=== PATIENT | female | born 1960 | race Caucasian/White ===

== ENCOUNTER 2018-01-22 15:36 | Emergency (ER) | payer BC ==
[2018-01-22] MEDS ORDERED: DIPHENHYDRAMINE HCL 50 MG/ML VIAL IM ONE (16:09)
[2018-01-22] MEDS ORDERED: MORPHINE SULFATE 10 MG/ML INJ IM ONE (16:09)
--- NOTE | 2018-01-22 16:15 | ER Document Report ---
ED Medical Screen (RME) - General Chief Complaint: Ankle Injury Stated Complaint: ANKLE/FOOT INJURY Time Seen by Provider: 01/22/18 16:07 Notes: 57-year-old female patient on no regular medications. Twisted her left ankle about 30 minutes prior to arrival. Past history of fracture in that same ankle. There is an abrasion to the anterior medial ankle, her tetanus is up-to-date. There appears to be possible deformity to the ankle, is difficult to tell due to how she is holding her foot. She does appear to be in a lot of pain. I have greeted and performed a rapid initial assessment of this patient. A comprehensive ED assessment and evaluation of the patient, analysis of test results and completion of the medical decision making process will be conducted by additional ED providers. - Related Data Allergies/Adverse Reactions: codeine Allergy (Verified 01/22/18 15:40) Past Medical History - Social History Chew tobacco use (# tins/day): No Frequency of alcohol use: Occasional Drug Abuse: None Renal/ Medical History: Denies: Hx Peritoneal Dialysis Physical Exam - Vital signs Vitals: Temp Pulse Resp BP Pulse Ox 98.4 F 90 14 134/77 H 98 01/22/18 15:45 01/22/18 15:45 01/22/18 15:45 01/22/18 15:45 01/22/18 15:45 Course - Vital Signs Vital signs: Temp Pulse Resp BP Pulse Ox 98.4 F 90 14 134/77 H 98 01/22/18 15:45 01/22/18 15:45 01/22/18 15:45 01/22/18 15:45 01/22/18 15:45
--- NOTE | 2018-01-22 16:50 | RADIOLOGY REPORT (SQ) ---
EXAM DESCRIPTION: ANKLE LEFT COMPLETE COMPLETED DATE/TIME: 01/22/2018 4:26 pm REASON FOR STUDY: Fall, deformity COMPARISON: None. NUMBER OF VIEWS: Three views. TECHNIQUE: AP, lateral, and oblique radiographic images acquired of the left ankle. LIMITATIONS: None. FINDINGS: MINERALIZATION: Normal. BONES: A trimalleolar fracture of the ankle is identified with posterior displacement of the talus in relation to the ankle mortise. JOINTS: No effusions. SOFT TISSUES: There is associated soft tissue swelling OTHER: Plantar spurring is identified. IMPRESSION: Trimalleolar fracture of the left ankle. TECHNICAL DOCUMENTATION: JOB ID: [id number] [employer]- All Rights Reserved Reading location - IP/workstation name: [email or web address]
[2018-01-22] MEDS ORDERED: ONDANSETRON HCL INJ/PF 4 MG/2 ML SDV IV ONE (16:59)
[2018-01-22] MEDS ORDERED: PROPOFOL INJ 200 MG/20 ML VIAL IV ONE (17:00)
--- NOTE | 2018-01-22 18:13 | RADIOLOGY REPORT (SQ) ---
EXAM DESCRIPTION: ANKLE LEFT AP/LATERAL COMPLETED DATE/TIME: 01/22/2018 6:03 pm REASON FOR STUDY: Post reduction COMPARISON: 01/22/2018 TECHNIQUE: AP and lateral views of the left ankle. LIMITATIONS: None. FINDINGS: There has been interval reduction of the previously described trimalleolar fracture of the left ankle. An overlying cast is identified. IMPRESSION: Interval reduction as noted above TECHNICAL DOCUMENTATION: JOB ID: [id number] [employer]- All Rights Reserved Reading location - IP/workstation name: [email or web address]
[2018-01-22] MEDS ORDERED: FENTANYL CITRATE INJ/PF 100 MCG/2 ML AMPUL IV ONE (18:32)
[2018-01-22] MEDS ORDERED: METOCLOPRAMIDE HCL INJ/PF 10 MG/2 ML SDV IV ONE (19:35)
[2018-01-22] MEDS ORDERED: DIPHENHYDRAMINE HCL 50 MG/ML VIAL IV ONE (19:36)
[2018-01-22] MEDS ORDERED: FAMOTIDINE INJ/PF 20 MG/2 ML SDV IV ONE (20:14)
[2018-01-22 20:47] VITALS: BP 122/73
--- NOTE | 2018-01-22 22:01 | ER Document Report ---
ED General - General Chief Complaint: Ankle Injury Stated Complaint: ANKLE/FOOT INJURY Time Seen by Provider: 01/22/18 16:07 Mode of Arrival: Stretcher Information source: Patient Notes: This is a 57-year-old female with no significant medical problems who presents to the emergency room with left ankle deformity after twisting her left ankle while ambulating. Medications: None Primary CARE physician: None Allergies: Codeine - HPI Onset: Just prior to arrival Onset/Duration: Sudden Quality of pain: Dull Severity: Severe Pain Level: 5 Associated symptoms: denies: Chest pain, Fever, Shortness of breath Exacerbated by: Movement Relieved by: Denies Similar symptoms previously: No Recently seen / treated by doctor: No - Related Data Allergies/Adverse Reactions: codeine Allergy (Verified 01/22/18 15:40) Past Medical History - General Information source: Patient - Social History Smoking Status: Never Smoker Cigarette use (# per day): No Chew tobacco use (# tins/day): No Frequency of alcohol use: Occasional Drug Abuse: None Lives with: Family Family History: None Patient has suicidal ideation: No Patient has homicidal ideation: No - Medical History Medical History: Negative Renal/ Medical History: Denies: Hx Peritoneal Dialysis Surgical Hx: Negative Review of Systems - Review of Systems Constitutional: denies: Chills, Fever EENT: No symptoms reported Cardiovascular: No symptoms reported Respiratory: No symptoms reported Gastrointestinal: No symptoms reported Genitourinary: No symptoms reported Female Genitourinary: No symptoms reported Musculoskeletal: See HPI Skin: No symptoms reported Hematologic/Lymphatic: No symptoms reported Neurological/Psychological: No symptoms reported Physical Exam - Vital signs Vitals: Temp Pulse Resp BP Pulse Ox 98.4 F 90 14 134/77 H 98 01/22/18 15:45 01/22/18 15:45 01/22/18 15:45 01/22/18 15:45 01/22/18 15:45 Notes: Physical exam: GENERAL: She is alert and oriented x3, she is complaining of left lower extremity pain she does have an obvious deformity. HEAD: Atraumatic, normocephalic. EYES: Pupils equal round and reactive to light, extraocular movements intact, sclera anicteric, conjunctiva are normal. ENT: TMs normal, nares patent, oropharynx clear without exudates. Moist mucous membranes. NECK: Normal range of motion, supple without obvious mass LUNGS: Breath sounds clear to auscultation bilaterally and equal. No wheezes rales or rhonchi. HEART: Regular rate and rhythm without murmurs, rubs or gallops. ABDOMEN: Soft, normoactive bowel sounds. No tenderness to palpation. No guarding, no rebound. No masses appreciated. EXTREMITIES: Left lower extremity: Patient has a good dopplerable DP and posterior tibial pulse. She has good cap refill. She does have a deformity of the distal tib-fib. She does have a superficial abrasion over the right malleolus. I have cleaned off this area and examined it closely and there is no evidence of puncture or extension into the deeper tissues. It appears quite superficial. She does have sensation to the distal foot. NEUROLOGICAL: Cranial nerves II through XII grossly intact. Normal speech, moving all extremities. PSYCH: Normal mood, normal affect. SKIN: As mentioned, there is a mild abrasion over the medial malleolus. This is away from where the deformity is. I gently cleaned this wound and probed with a Q-tip and there was no puncture barajas going deep into the tissues. This appears to be a very superficial abrasion. This is not an area where there is tension against the skin as well. If anything, the tension appears to be on the lateral aspect of the distal extremity. Course - Re-evaluation Re-evalutation: 01/22/18 21:57 Patient tolerated the procedure well. Repeat films show significant interval improvement of the week located joint. I did discuss the case with Dr. Herron who is covering for orthopedics and he is willing to see the patient in the office at 8 AM or admit the patient to the hospital overnight for surgery if needed. I have discussed the options above with the patient as well as the patient's mother at the bedside. They have an orthopedist with [facility] and they are requesting to go there. I did call [facility] ([phone]) and spoke to the answering service and attempted to get a call back to arrange for an appointment tomorrow so that surgery can be scheduled promptly. After multiple attempts through the answering service, I still received no word from them. I did discuss this with the patient and her mother. They are insistent that they would rather go to [facility] and they do not want to stay in the hospital and have surgery here. The patient was given some IV pain medicine and she was nauseated and received IV antiemetics. We observed her until she felt better and then we did a walk test with crutches in the emergency room which she passed. I will give her the number of [facility] and I have stressed to them that she really needs to see tomorrow in the morning. I have advised them if they are unable to get into [facility], she could still go to Dr. Herron's office as a walk-in and they will see her and schedule surgery. - Vital Signs Vital signs: Temp Pulse Resp BP Pulse Ox 98.4 F 70 16 122/73 100 01/22/18 15:45 01/22/18 18:20 01/22/18 20:31 01/22/18 20:31 01/22/18 20:31 - Diagnostic Test Radiology reviewed: Image reviewed, Reports reviewed - Fracture dislocation of the left ankle Procedures - Conscious Sedation Conscious sedation Time started: 17:45 Time completed: 18:20 Consent obtained: Yes Indication: Fracture dislocation of the left ankle Last meal: 2 PM Prior complications: Procedural sedation Normal healthy pt.: P1. - ASA Classification Airway Evaluation: Normal anatomy Mallampati Classification: Class 2 Used during procedure: Suction available, IV access obtained, Pulse ox on pt., hall monitor on pt. Medications administered: Diprivan Reversal agents: None I personally performed/intraservice time: Sedation, Procedure, 31-45 min Complications: No - Immobilization Left Leg Time completed: 18:20 Pre-Proc Neuro Vasc Exam: Normal Immobilizer type: Sugar tong, Short Leg Posterior Performed by: Provider - With assistance from PCT Post-Proc Neuro Vasc Exam: Normal Alignment checked and good: Yes Notes: 01/22/18 23:05 X-rays show improved alignment. Cap refill checked multiple times after splint placement: Good - Joint Reduction/Fracture Care Left Leg Time completed: 18:20 Consent obtained: Yes Conscious sedation: Yes Pre-procedure NV exam: Yes - DP and posterior tibial pulses were marked Fracture: Closed Manipulation comment: Traction employed with manipulation of the foot into place. Post-procedure NV exam: Yes - Good cap refill, good sensory Post-reduction x-ray: Joint reduced Reduction attempts: 1 Complications: No Discharge - Discharge Clinical Impression: Left ankle fracture dislocation Condition: Stable Disposition: HOME, SELF-CARE Additional Instructions: As we discussed, it is very important that you get seen by the orthopedic surgeon tomorrow. Bring a copy of today's x-rays with you when you go for evaluation. I recommend you call [facility] at [address] [place] [address] Additionally, [facility] often has walk-in evaluations in [place] on [address]. I would call confirm this before going down there. And as mentioned, if you are unable to get into [facility], Dr. Herron is willing to see you in the office to arrange for surgery in the next few days. The pain medicine as prescribed. Take the Phenergan for nausea. Keep the ankle elevated. You can apply ice to the top of the ankle. Use the crutches: I do not want you to bear any weight on that extremity. Return to the emergency room for increasing pain, blue toes, fever (temperature greater than 100.5) or any concerns or getting worse. The pain medicine you're taking prescribed as a narcotic. There are several important things you should know about this medicine: 1. Taking narcotics for too long can lead to physical and mental dependence. Take this medicine only if really needed and in the lowest quantity to achieve pain relief. 2. Do not drink alcohol while on this medicine. Alcohol interacts with narcotics and the combination can be dangerous. 3. Do not drive or operate machinery while on this medicine. 4. Narcotics do cause constipation, so drink plenty of fluids and daily stool softeners. Prescriptions: Oxycodone HCl 5 mg PO Q6HP PRN #25 tablet PRN Reason: Promethazine HCl [Phenergan 25 mg Tablet] 25 mg PO Q6H PRN #15 tablet PRN Reason: Referrals: JOSE HERRON MD [ACTIVE STAFF] - 01/23/18 8:00 am (Dr. Herron is willing to see you tomorrow in the office at 8 AM as a walk-in.)
[2018-01-22] MEDS ORDERED: PROMETHAZINE HCL 25 MG TABLET PO ONE (22:05)
[2018-01-22] MEDS ORDERED: HYDROCODONE/ACETAMINOPHEN 5-325 MG (6 TAB/ER DISP) PO PRN (22:06)
== END 2018-01-22 22:20 | disposition home or self-care (01) ==
LOC: EDBD → ER 15:36
PROC: 0SSGXZZ Reposition Left Ankle Joint, External Approach (ICD-10-PCS; principal; 2018-01-22)
DX: S82.892A Other fracture of left lower leg, initial encounter for closed fracture (principal); S90.512A Abrasion, left ankle, initial encounter; X50.0XXA Overexertion from strenuous movement or load, initial encounter; Z88.6 Allergy status to analgesic agent
CPT/HCPCS: 99283; 96372; 99152; 96374; 96375; 73600; 73610; 27840; J1200; J3010; J2765; J2270; J2405; J2704; S0028

== ENCOUNTER 2018-01-26 11:04 | Day surgery (SDC) | payer BC ==
[~2018-01-26 11:04] MED LIST: CEFAZOLIN 2 GM/D5W RTU 2 GM/50 ML RTUPB IV PRN; SUCCINYLCHOLINE CHLORIDE INJ 200 MG/10 ML VIAL ONE
[2018-01-26 11:43] LABS: APPEARANCE,URINE CLEAR; BILIRUBIN,URINE NEGATIVE (NEGATIVE); COLOR,URINE YELLOW; GLUCOSE, URINE NEGATIVE (NEGATIVE); KETONES,URINE 300 mg/dL (NEGATIVE); LEUKOCYTE ESTERASE,URINE SMALL (NEGATIVE); NITRITE,URINE NEGATIVE (NEGATIVE); PROTEIN,URINE 30 mg/dL (NEGATIVE)
[2018-01-26 11:47] LABS: URINE SPECIFIC GRAVITY 1.027
[2018-01-26 11:48] LABS: HEMATOCRIT 42.4 % (36.0-47.0); HEMOGLOBIN 14.4 g/dL (12.0-15.5); MEAN CORPUSCULAR HEMOGLOBIN 30.7 pg (27.0-33.4); MEAN CORPUSCULAR VOLUME 90 fl (80-97); PLATELET COUNT 258 10^3/uL (150-450); RED BLOOD COUNT 4.69 10^6/uL (3.72-5.28); RED CELL DISTRIBUTION WIDTH 13.6 % (11.5-14.0); WHITE BLOOD COUNT 6.3 10^3/uL (4.0-10.5)
[2018-01-26 11:51] LABS: INTERNATIONAL RATION (INR) 0.93; PARTIAL THROMBOPLASTIN TIME 25.4 SEC (23.5-35.8); PROTHROMBIN TIME 12.9 SEC (11.4-15.4)
[2018-01-26 12:03] LABS: ANION GAP 11 (5-19); BLOOD UREA NITROGEN 15 mg/dL (7-20); CALCIUM 9.9 mg/dL (8.4-10.2); CARBON DIOXIDE 24 mmol/L (22-30); CHLORIDE 104 mmol/L (98-107); GLUCOSE 104 mg/dL (75-110); POTASSIUM 3.9 mmol/L (3.6-5.0); SODIUM 139.4 mmol/L (137-145)
[2018-01-26] MEDS ORDERED: CEFAZOLIN 2 GM/D5W RTU 2 GM/50 ML RTUPB IV ONE (12:09)
--- NOTE | 2018-01-26 12:09 | RADIOLOGY REPORT (SQ) ---
EXAM DESCRIPTION: CHEST SINGLE VIEW COMPLETED DATE/TIME: 01/26/2018 11:50 am REASON FOR STUDY: PREOP COMPARISON: None. EXAM PARAMETERS: NUMBER OF VIEWS: One view. TECHNIQUE: Single frontal radiographic view of the chest acquired. RADIATION DOSE: NA LIMITATIONS: None. FINDINGS: LUNGS AND PLEURA: No opacities, masses or pneumothorax. No pleural effusion. MEDIASTINUM AND HILAR STRUCTURES: No masses. Contour normal. HEART AND VASCULAR STRUCTURES: Heart normal in size. Normal vasculature. BONES: No acute findings. HARDWARE: None in the chest. OTHER: No other significant finding. IMPRESSION: NO ACUTE RADIOGRAPHIC FINDING IN THE CHEST. TECHNICAL DOCUMENTATION: JOB ID: [id number] [employer]- All Rights Reserved Reading location - IP/workstation name: [email or web address]
[2018-01-26] MEDS ORDERED: DEXAMETHASONE SOD PHOSPHATE INJ 4 MG/1 ML VIAL ONE (12:22)
[2018-01-26] MEDS ORDERED: FENTANYL CITRATE INJ/PF 100 MCG/2 ML AMPUL ONE ×2 (12:22→13:38)
[2018-01-26] MEDS ORDERED: MIDAZOLAM 2 MG/2 ML INJ ONE (12:22)
[2018-01-26] MEDS ORDERED: ACETAMINOPHEN 1,000 MG/100 ML RTUPB IV ONE (12:23)
[2018-01-26] MEDS ORDERED: PROPOFOL INJ 200 MG/20 ML VIAL IV ONE (12:23)
[2018-01-26] MEDS ORDERED: ONDANSETRON HCL INJ/PF 4 MG/2 ML SDV ONE ×2 (12:23→16:46)
[2018-01-26] MEDS ORDERED: PROMETHAZINE HCL INJ 25 MG/1 ML VIAL IV PRN ×2 (13:41)
[2018-01-26] MEDS ORDERED: ONDANSETRON HCL INJ/PF 4 MG/2 ML SDV IV PRN (13:41)
[2018-01-26] MEDS ORDERED: FENTANYL CITRATE INJ/PF 100 MCG/2 ML AMPUL IV PRN ×3 (13:41)
[2018-01-26] MEDS ORDERED: DIPHENHYDRAMINE HCL 50 MG/ML VIAL IV PRN (13:41)
[2018-01-26] MEDS ORDERED: MORPHINE SULFATE 10 MG/ML INJ IV PRN (13:41)
[2018-01-26] MEDS ORDERED: MEPERIDINE HCL/PF INJ 25 MG/1 ML DISP.SYRIN IV PRN (13:41)
--- NOTE | 2018-01-26 14:01 | Discharge Summary ---
Discharge Summary (SDC) - Discharge Final Diagnosis: Left trimalleolar ankle fracture Date of Surgery: 01/26/18 Discharge Date: 01/26/18 Condition: Good Treatment or Instructions: Touchdown weightbearing restriction left lower extremity Elevate left lower extremity Prescriptions: Oxycodone HCl 5 mg PO Q6HP PRN #25 tablet PRN Reason: Discharge Diet: As Tolerated, Regular
--- NOTE | 2018-01-26 14:04 | Operative Report ---
Operative Report DATE OF SURGERY: 01/26/18 PREOPERATIVE DIAGNOSIS: Left trimalleolar ankle fracture OPERATION: Open reduction internal fixation left trimalleolar ankle fracture SURGEON: JOSE HERRON ANESTHESIA: GA ESTIMATED BLOOD LOSS: 25 PROCEDURE: With the patient supine Afrin table left lower extremities prepped and draped in sterile fashion. Limb was elevated for exsanguination tourniquet inflated to 280 torr. Longitudinal incision was made over the distal lateral fibula. The underlying periosteum was elevated and the fracture exposed. Its reduced under direct visualization. A Marie titanium distal fibula plate is placed and secured with 3 screws proximally and 5 screws distally. An incision is then made over the medial malleolus and this is reduced anatomically under direct visualization. Secured with 2 x 4.0 mm screws cannulated. Lastly a posterior malleolar fragment is not adequately reduced. Stab wounds were placed anteriorly and posteriorly and a large tong is used to reduce the fracture. The reduction is maintained with a single posterior to anterior 4.0 millimeter screw. The tourniquet is deflated. Hemostasis obtained with electrocautery. Wounds irrigated with bulb lavage. Wound was closed in layers interrupted Vicryl followed by nylon. Sterile compressive dressing was applied and patient's return to PACU in satisfactory condition
[2018-01-26] MEDS: HYDROMORPHONE HCL INJ/PF 2 MG/ML AMPULE ONE ×2 (14:41→14:50)
[2018-01-26] MEDS ORDERED: KETOROLAC TROMETHAMINE INJ/PF 30 MG/1 ML SDV ONE (14:43)
--- NOTE | 2018-01-26 15:29 | RADIOLOGY REPORT (SQ) ---
EXAM DESCRIPTION: NO CHG FLUORO; ANKLE LEFT AP/LATERAL COMPLETED DATE/TIME: 01/26/2018 3:10 pm REASON FOR STUDY: ORIF LEFT ANKLE ASST WITH FLUORO IN OR COMPARISON: None. FLUOROSCOPY TIME: 0.3 minutes 3 images saved to PACS. TECHNIQUE: Intra-operative images acquired during surgical procedure to evaluate progress. NUMBER OF IMAGES: 3 LIMITATIONS: None. FINDINGS: Selected images from internal fixation of trimalleolar fracture. Alignment is anatomic. IMPRESSION: IMAGE(S) OBTAINED DURING PROCEDURE. COMMENT: Quality ID [id number]: Final reports for procedures using fluoroscopy that document radiation exp osure indices, or exposure time and number of fluorographic images (if radiation exposure indices are not available) Please consult full operative report of the attending physician for description of the procedure. TECHNICAL DOCUMENTATION: JOB ID: [id number] [employer]- All Rights Reserved Reading location - IP/workstation name: [email or web address]
--- NOTE | 2018-01-26 15:29 | RADIOLOGY REPORT (SQ) ---
EXAM DESCRIPTION: NO CHG FLUORO; ANKLE LEFT AP/LATERAL COMPLETED DATE/TIME: 01/26/2018 3:10 pm REASON FOR STUDY: ORIF LEFT ANKLE ASST WITH FLUORO IN OR COMPARISON: None. FLUOROSCOPY TIME: 0.3 minutes 3 images saved to PACS. TECHNIQUE: Intra-operative images acquired during surgical procedure to evaluate progress. NUMBER OF IMAGES: 3 LIMITATIONS: None. FINDINGS: Selected images from internal fixation of trimalleolar fracture. Alignment is anatomic. IMPRESSION: IMAGE(S) OBTAINED DURING PROCEDURE. COMMENT: Quality ID [id number]: Final reports for procedures using fluoroscopy that document radiation exp osure indices, or exposure time and number of fluorographic images (if radiation exposure indices are not available) Please consult full operative report of the attending physician for description of the procedure. TECHNICAL DOCUMENTATION: JOB ID: [id number] [employer]- All Rights Reserved Reading location - IP/workstation name: [email or web address]
[2018-01-26] MEDS ORDERED: OXYCODONE HCL IR 5 MG TABLET ONE (15:45)
[2018-01-26 18:06] VITALS: BP 103/63
--- NOTE | 2018-01-26 18:11 | EKG REPORT ---
SEVERITY:- NORMAL ECG - SINUS RHYTHM : Confirmed by: Siobhan Charles MD 26-Jan-2018 18:11:10
== END 2018-01-26 17:55 | disposition home or self-care (01) ==
LOC: OROUT 11:04
PROVIDERS: ATTEND Orthopaedic Surgery
DX: S82.852A Displaced trimalleolar fracture of left lower leg, initial encounter for closed fracture (principal); W17.89XA Other fall from one level to another, initial encounter; M25.572 Pain in left ankle and joints of left foot; Z88.5 Allergy status to narcotic agent; Z91.040 Latex allergy status; E66.3 Overweight; Z68.25 Body mass index [BMI] 25.0-25.9, adult
CPT/HCPCS: 36415; 85027; 85610; 85730; 80048; 81001; 73600; 71045; 93005; 93010; 27822; C1713 ×9; C1769; J2250; J1100; J3010; J1885; J1170; J0330; J2405; J2704; J0690; J0131; 01480